=== PATIENT | male | born 1950 | race Caucasian/White ===

== ENCOUNTER 2023-11-01 09:26 | Outpatient (CLI) | payer MEDICARE, SELFPAY ==
--- NOTE | 2023-11-01 09:36 | XR_ITS ---
FINAL REPORT CLINICAL HISTORY: RONALD KNEE PAIN COMPARISON: None FINDINGS: RIGHT KNEE 3 views of the right knee were obtained. There is no acute fracture or dislocation. There is advanced medial compartment joint space narrowing. There are hypertrophic changes in the medial joint margin. There is sharpening of the tibial spines. Soft tissues are unremarkable. IMPRESSION: Moderately advanced hypertrophic changes of osteoarthritis as above. Reviewed, Interpreted and Dictated by Jorge Ramos MD Transcribed by Lyssa Cazares Authenticated and [facility]
--- NOTE | 2023-11-01 09:36 | XR_ITS ---
FINAL REPORT CLINICAL HISTORY: RONALD KNEE PAIN COMPARISON: None FINDINGS: LEFT KNEE Four views of the left knee were obtained. There is no acute fracture or dislocation. There is advanced medial compartment joint space narrowing. There are hypertrophic changes in the medial joint margin. There is sharpening of the tibial spines. Soft tissues are unremarkable. IMPRESSION: Moderately advanced hypertrophic changes of osteoarthritis as above. Reviewed, Interpreted and Dictated by Jorge Ramos MD Transcribed by Lyssa Cazares Authenticated and [facility]
== END 2023-11-01 23:59 | disposition home or self-care (01) ==
LOC: RAD 09:29
PROVIDERS: PCP Nurse Practitioner Family; Visit Provider Nurse Practitioner Family
DX: M25.561 Pain in right knee (principal); M25.562 Pain in left knee; G89.29 Other chronic pain
CPT/HCPCS: 73562